=== PATIENT | male | born 1950 | race Two or more races ===

== ENCOUNTER 2020-03-01 12:15 | Emergency (ER) | payer MEDICARE ==
[~2020-03-01] VITALS: Ht 154.9 cm; Wt 74.1 kg
[2020-03-01] MEDS ORDERED: LIDOCAINE 2%,20 ML JEL.PF.APP MM ONE ×2 (12:32→13:00)
[2020-03-01 13:07] LABS: BASOPHILS % (AUTO) 1 % (0-1); EOSINOPHILS % (AUTO) 1 % (1-7); LYMPHOCYTES % (AUTO) 26 % (22-44); MEAN CORPUSCULAR HGB CONC 35.2 g/dL (33.2-36.2); MEAN PLATELET VOLUME 8.5 fL (7.4-10.4); MONOCYTES % (AUTO) 6 % (2-9); NEUTROPHILS % (AUTO) 67 % (42-75); PLATELET COUNT 257 x10^3/uL (130-400)
[2020-03-01 13:10] LABS: MD NO
[2020-03-01 13:15] LABS: ANION GAP 6 mmol/L (5-15); CALCIUM 9.7 mg/dL (8.5-10.1); CHLORIDE 107 mmol/L (98-107); CREATININE 1.02 mg/dL (0.7-1.3)
[2020-03-01 13:43] VITALS: BP 137/83
[2020-03-01 14:32] LABS: MICROSCOPIC NOT IND
== END 2020-03-01 15:16 | disposition home or self-care (01) ==
LOC: ED 14:10
DX: R33.9 Retention of urine, unspecified (principal); R10.30 Lower abdominal pain, unspecified
CPT/HCPCS: 36415; 51702; 80048; 81003; 85025; 99284

== ENCOUNTER → 2020-07-04 | Outpatient (CLI) | payer MEDICARE | END | disposition home or self-care (01) | LOC: STAR 14:05 | PROVIDERS: ATTEND Anesthesiology | DX: Z01.818 Encounter for other preprocedural examination (principal); Z01.812 Encounter for preprocedural laboratory examination; Z01.89 Encounter for other specified special examinations; R79.1 Abnormal coagulation profile; R94.31 Abnormal electrocardiogram [ECG] [EKG] | CPT/HCPCS: 93005 ==